=== PATIENT | male | born 1985 | race Caucasian/White ===

== ENCOUNTER 2024-10-17 23:42 | Emergency (ER) | payer OTHER ==
[2024-10-17 23:52] VITALS: TEMP 97.7; BMI 26.7
[2024-10-18] MEDS ORDERED: ACETAMINOPHEN INJECTION 100 ML ONE (01:21)
[2024-10-18] MEDS: ACETAMINOPHEN 1000 MG/100 ML BAG IVPB ONE (01:26)
[2024-10-18 01:29] LABS: ABSOLUTE IMMATURE GRANULOCYTES 0.07 x10^3/uL (0.0-0.031); BASOPHILS # 0.06 x10^3/uL (0.01-0.08); EOSINOPHIL % 2.1 % (0.8-7.0); EOSINOPHILS # 0.20 x10^3/uL (0.04-0.54); MCHC 31.1 g/dl (32.3-36.5); MEAN CELL VOLUME 86.4 fl (79.0-92.2); MEAN PLT VOLUME 10.5 fl (9.4-12.4); MONOCYTE # 0.65 x10^3/uL (0.30-0.82); MONOCYTE % 6.8 % (5.3-12.2); RDW 12.8 % (12.0-15.6)
[2024-10-18 01:54] LABS: INR 0.99 (0.83-1.09); PROTHROMBIN TIME (PATIENT) 10.8 SEC (9.7-13.0)
[2024-10-18 01:57] LABS: ACTIVATED PTT 30.9 SECONDS (25.2-36.5)
[2024-10-18 01:59] LABS: GLUCOSE,RANDOM 135.0 mg/dL (74-106)
[2024-10-18 02:00] LABS: CO2 25.0 mmol/L (21-32)
[2024-10-18 02:02] LABS: SGOT/AST 19.0 U/L (15-37); SGPT/ALT 37.0 U/L (13-61)
[2024-10-18 02:04] LABS: TOT PROT 6.8 g/dl (6.4-8.2)
[2024-10-18 02:05] LABS: ALK PHOS 78.0 U/L (45-117)
[2024-10-18 02:06] LABS: CREATININE 0.9 mg/dL (0.55-1.3)
[2024-10-18 03:38] VITALS: BP 120/81; PULSE 79; RESP 19
[2024-10-18 05:38] LABS: HCV DIAGNOSTIC IN-HOUSE W/RFLX NON-REACTIVE (NONREACTIVE)
[2024-10-18 21:03] LABS: HIV INTERPRETATION NEGATIVE (NEGATIVE)
== END 2024-10-18 03:46 | disposition home or self-care (01) ==
LOC: JER 23:42
PROC: 3E033NZ Introduction of Analgesics, Hypnotics, Sedatives into Peripheral Vein, Percutaneous Approach (ICD-10-PCS; principal; 2024-10-18)
DX: R10.31 Right lower quadrant pain (principal); R11.0 Nausea; K59.00 Constipation, unspecified
CPT/HCPCS: 36415; 74177-TC; 80053; 83735; 85025; 85610; 85730; 86803; 86850; 86900; 86901; 87389; 96374; 99285-25

== ENCOUNTER 2024-11-10 19:27 | Emergency (ER) | payer OTHER ==
[2024-11-10 19:33] VITALS: TEMP 98.2; BMI 26.7
[2024-11-10] MEDS ORDERED: MAG HYDROX/AL HYDROX/SIMETH 30 ML UNIT-DOSE CUP ONE (20:33)
[2024-11-10] MEDS ORDERED: ACETAMINOPHEN INJECTION 100 ML ONE (20:33)
[2024-11-10 20:34] LABS: ABSOLUTE IMMATURE GRANULOCYTES 0.04 x10^3/uL (0.0-0.031); BASOPHILS # 0.04 x10^3/uL (0.01-0.08); EOSINOPHIL % 1.7 % (0.8-7.0); EOSINOPHILS # 0.14 x10^3/uL (0.04-0.54); MCHC 30.2 g/dl (32.3-36.5); MEAN CELL VOLUME 83.9 fl (79.0-92.2); MEAN PLT VOLUME 10.3 fl (9.4-12.4); MONOCYTE # 0.56 x10^3/uL (0.30-0.82); MONOCYTE % 6.8 % (5.3-12.2); RDW 12.7 % (12.0-15.6)
[2024-11-10] MEDS: SODIUM CHLORIDE 0.9% 500 ML INFUS.BAG IV ONE (20:38)
[2024-11-10] MEDS: MAG HYDROX/AL HYDROX/SIMETH -MYLANTA- ORAL SUSPENSION PO ONE (20:38)
[2024-11-10] MEDS: ACETAMINOPHEN 1000 MG/100 ML BAG IVPB ONE (20:38)
[2024-11-10 20:45] LABS: INR 1.0 (0.83-1.09); PROTHROMBIN TIME (PATIENT) 10.9 SEC (9.7-13.0)
[2024-11-10 20:48] LABS: ACTIVATED PTT 30.4 SECONDS (25.2-36.5); GLUCOSE,RANDOM 142.0 mg/dL (74-106)
[2024-11-10 20:49] LABS: TOT PROT 7.1 g/dl (6.4-8.2)
[2024-11-10 20:50] LABS: CO2 23.0 mmol/L (21-32)
[2024-11-10 20:51] LABS: ALK PHOS 82.0 U/L (40-150)
[2024-11-10 20:54] LABS: CREATININE 0.82 mg/dL (0.55-1.3); SGOT/AST 33.0 U/L (5-34); SGPT/ALT 39.0 U/L (0-55)
[2024-11-10 20:59] LABS: URINE APPEARANCE CLEAR; URINE BILIRUBIN NEGATIVE (NEGATIVE); URINE COLOR YELLOW; URINE GLUCOSE (UA) NEGATIVE (NEGATIVE); URINE KETONE NEGATIVE (NEGATIVE); URINE LEUK ESTERASE NEGATIVE (NEGATIVE); URINE NITRITE NEGATIVE (NEGATIVE); URINE PROTEIN TRACE (NEGATIVE); URINE UROBILINOGEN 1.0 mg/dL (0.2-1.0)
[2024-11-10 21:15] LABS: HCV DIAGNOSTIC IN-HOUSE W/RFLX NON-REACTIVE (NONREACTIVE); HIV INTERPRETATION NEGATIVE (NEGATIVE)
[2024-11-10] MEDS: ONDANSETRON 4 MG/2 ML VIAL IVPUSH ONE (22:15)
[2024-11-10] MEDS ORDERED: ONDANSETRON 4 MG/2 ML VIAL ONE (22:16)
[2024-11-10 23:33] VITALS: BP 124/77; PULSE 80; RESP 17
== END 2024-11-10 23:34 | disposition home or self-care (01) ==
LOC: JER 19:27
PROC: 3E033NZ Introduction of Analgesics, Hypnotics, Sedatives into Peripheral Vein, Percutaneous Approach (ICD-10-PCS; principal; 2024-11-10)
PROC: 3E033GC Introduction of Other Therapeutic Substance into Peripheral Vein, Percutaneous Approach (ICD-10-PCS; 2024-11-10)
DX: R10.84 Generalized abdominal pain (principal); R11.0 Nausea
CPT/HCPCS: 36415; 74177-TC; 80053; 81003; 83605; 83690; 83735; 84100; 85025; 85610; 85730; 86803; 87086; 87389; 93005; 93010; 99285-25; Q9967

== ENCOUNTER 2024-12-05 20:36 | Emergency (ER) | payer OTHER ==
[2024-12-05 20:42] VITALS: BP 133/78; PULSE 94; RESP 18; TEMP 98.2; BMI 27.0
[2024-12-05] MEDS: METOCLOPRAMIDE HCL INJECTION 10 MG/2 ML VIAL IVPUSH ONE (22:15)
[2024-12-05] MEDS: LACTATED RINGERS SOLUTION 1000 ML INFUS.BAG IV ONE (22:15)
[2024-12-05 22:39] LABS: ABSOLUTE IMMATURE GRANULOCYTES 0.05 x10^3/uL (0.0-0.031); BASOPHILS # 0.02 x10^3/uL (0.01-0.08); EOSINOPHIL % 1.8 % (0.8-7.0); EOSINOPHILS # 0.14 x10^3/uL (0.04-0.54); MCHC 29.8 g/dl (32.3-36.5); MEAN CELL VOLUME 77.8 fl (79.0-92.2); MEAN PLT VOLUME 10.9 fl (9.4-12.4); MONOCYTE # 0.59 x10^3/uL (0.30-0.82); MONOCYTE % 7.7 % (5.3-12.2); RDW 13.4 % (12.0-15.6)
[2024-12-05] MEDS ORDERED: ACETAMINOPHEN INJECTION 100 ML ONE (22:55)
[2024-12-05 23:24] LABS: ERYTHROCYTE SEDIMENTATION RATE 16 mm/hr (0-10)
[2024-12-05 23:43] LABS: HCV DIAGNOSTIC IN-HOUSE W/RFLX NON-REACTIVE (NONREACTIVE)
[2024-12-05 23:59] LABS: GLUCOSE,RANDOM 226.0 mg/dL (74-106)
[2024-12-05] MEDS: ACETAMINOPHEN 1000 MG/100 ML BAG IVPB ONE (23:59)
[2024-12-06] LABS: TOT PROT 6.9 g/dl (6.4-8.2)
[2024-12-06 00:01] LABS: CO2 21.0 mmol/L (21-32)
[2024-12-06 00:02] LABS: ALK PHOS 81.0 U/L (40-150)
[2024-12-06 00:05] LABS: CREATININE 0.75 mg/dL (0.55-1.3); SGOT/AST 35.0 U/L (5-34); SGPT/ALT 33.0 U/L (0-55)
[2024-12-06 00:50] LABS: HIV INTERPRETATION NEGATIVE (NEGATIVE)
== END 2024-12-06 00:21 | disposition home or self-care (01) ==
LOC: JER 20:36
PROC: 3E033GC Introduction of Other Therapeutic Substance into Peripheral Vein, Percutaneous Approach (ICD-10-PCS; principal; 2024-12-05)
DX: R10.13 Epigastric pain (principal); R10.31 Right lower quadrant pain; R11.2 Nausea with vomiting, unspecified
CPT/HCPCS: 36415; 80053; 83605; 85025; 85651; 86140; 86803; 87389; 96374; 99284-25